=== PATIENT | female | born 1995 | race Caucasian/White ===

== ENCOUNTER 2017-11-02 15:40 | Emergency (ER) | payer MEDICAID ==
[2017-11-02 15:40] VITALS: BMI 19.5
[2017-11-02 15:49] VITALS: BP 109/78; PULSE 84; TEMP 97.8; O2SAT 99
[2017-11-02 16:34] VITALS: RESP 15
--- NOTE | 2017-11-02 16:37 | C.PDOC ---
History Of Present Illness 22 year old female presents to the emergency department with complaints of pain in her chest that is associated with movement, resulting in shortness of breath. Patient reports that things such as sneezing and laughing are difficult due to the fact that she cannot take forceful, full breaths without pain. Patient reports that she has felt this way for a "couple of months", stating that it was worse at the beginning. She denies any trauma, falls, pneumonia, or asthma. Patient has a four year old child at home who she denies carrying/ lifting due to his weight. 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 Time Seen by Provider: 11/02/17 16:01 Chief Complaint (Nursing): Rib Injury History Per: Patient History/Exam Limitations: no limitations Onset/Duration Of Symptoms: Days ("couple of months") Current Symptoms Are (Timing): Still Present Quality: "Pain" Exacerbating Factors: Turning, Movement, Deep Breathing, Exertion, Other ( movement of her arms) Alleviating Factors: Other (Breathing shorter and quickly rather than deeply. ) Past Medical History Reviewed: Historical Data, Nursing Documentation, Vital Signs Vital Signs: Last Vital Signs Temp 97.8 F 11/02/17 15:46 Pulse 84 11/02/17 15:46 Resp 15 11/02/17 16:08 BP 109/78 11/02/17 15:46 Pulse Ox 99 11/02/17 17:01 - Medical History PMH: No Chronic Diseases Denies: Asthma, Pneumonia Surgical History: No Surg Hx Family History: States: No Known Family Hx - Social History Hx Tobacco Use: No Hx Alcohol Use: No Hx Substance Use: No - Immunization History Hx Tetanus Toxoid Vaccination: No Hx Influenza Vaccination: No Hx Pneumococcal Vaccination: No Review Of Systems Except As Marked, All Systems Reviewed And Found Negative. Cardiovascular: Positive for: Chest Pain Respiratory: Positive for: Shortness of Breath Physical Exam - Physical Exam Appears: Well, Non-toxic Skin: Normal Color, No Rash Head: Atraumatic, Normacephalic Eye(s): bilateral: Normal Inspection Ear(s): Bilateral: Normal Nose: Normal Tongue: Normal Appearing Neck: Normal, Supple Chest: Tenderness, Other (costochondritis; digitally reproducible pain at the left parasternal intercostal space. ) Cardiovascular: Rhythm Regular Respiratory: Normal Breath Sounds Neurological/Psych: Oriented x3, Normal Speech, Normal Cognition ED Course And Treatment ECG: Interpreted By Me ECG Rhythm: Sinus Rhythm (60) ECG Interpretation: Normal O2 Sat by Pulse Oximetry: 99 (RA) Pulse Ox Interpretation: Normal Medical Decision Making Medical Decision Making: Plan: * EKG * Motrin 600mg PO positionally and digitally reproducable localized discomfort @ L lower parasternal area for about 2 months, clear lungs, normal EKG 4 y/0 child @ home- occasional awkward lifting, c/w costochondritis and NOT ACS ice and NSAIDS educated. Disposition Doctor Will See Patient In The: Office Counseled Patient/Family Regarding: Studies Performed, Diagnosis - Disposition Referrals: [facility] at [facility] [Outside] [facility] [Outside] Nolberto Hatfield MD [Medical Doctor] - Disposition: HOME/ ROUTINE Disposition Time: 16:37 Condition: GOOD Additional Instructions: ice packs to the affected area 1/2 hour per hour, nothing hot. motrin 400-600 mg every 6 hours as needed no heavy lifting for 1-2 weeks this discomfort will last 1-2 more weeks Follow-up with your PMD or our outpatient [facility] as needed. EKG today is NORMAL- you are NOT having a heart attack. Instructions: Costochondritis Forms: [employer] (Yemeni) - Clinical Impression Clinical Impression: Chest wall discomfort - Scribe Statement The provider has reviewed the documentation as recorded by the Scribe (Karl Lyle) Provider Attestation: All medical record entries made by the Scribe were at my direction and personally dictated by me. I have reviewed the chart and agree that the record accurately reflects my personal performance of the history, physical exam, medical decision making, and the department course for this patient. I have also personally directed, reviewed, and agree with the discharge instructions and disposition.
--- NOTE | 2017-11-03 23:29 | CARD ---
APPROVED REPORT EKG Measurement Heart [id number] <Conclusion> Normal sinus rhythm with sinus arrhythmia Normal ECG
== END 2017-11-02 17:04 | disposition home or self-care (01) ==
LOC: C.ER 15:40
DX: R07.89 Other chest pain (principal)

== ENCOUNTER 2017-11-08 11:48 | Observation (INO) | payer MEDICAID ==
[2017-11-08 11:48] VITALS: BMI 19.5
[2017-11-08] MEDS ORDERED: Sodium Chloride 0.9% 1,000 ML IV ONE ×2 (12:10→15:40)
[2017-11-08 12:15] LABS: BASO # 0.1 K/uL (0.0-0.2); BASO % 0.7 % (0.0-2.0); EOS # 0.1 K/uL (0.0-0.7); EOS % 0.5 % (0.0-4.0); LYMPH # 4.2 K/uL (1.0-4.3); LYMPH % 21.9 % (20.0-40.0); MEAN CELL VOLUME 88.1 fL (81.0-99.0); MEAN CORPUSCULAR HEMOGLOBIN 29.8 pg (27.0-31.0); MEAN CORPUSCULAR HGB CONC 33.8 g/dL (33.0-37.0); MEAN PLATELET VOLUME 8.7 fL (7.2-11.7); MONO % 5.3 % (0.0-10.0); NEUT # 13.7 K/uL (1.8-7.0); NEUT % 71.6 % (50.0-75.0); NRBC % 0.1 % (0.0-2.0); RBC 4.37 Mil/uL (3.80-5.20); RED CELL DISTRIBUTION WIDTH 14.5 % (11.5-14.5); WHITE BLOOD COUNT 19.1 K/uL (4.8-10.8)
[2017-11-08 12:30] LABS: ALB/GLOB RATIO 1.2 (1.0-2.1); ALBUMIN 4.6 g/dL (3.5-5.0); ALT/SGPT 22 U/L (9-52); AST/SGOT 37 U/L (14-36); BLOOD UREA NITROGEN 12 mg/dL (7-17); CALCIUM 9.5 mg/dl (8.6-10.4); GFR AFRICAN-AMERICAN > 60; GFR NON-AFRICAN AMERICAN > 60
--- NOTE | 2017-11-08 12:52 | C.PDOC ---
History Of Present Illness Patient is a 22 y/o female, with a Hx of a cesarian section, who presents to the ED with a complaint of vomiting since 7 am this morning. Patient reports having 2 jose drinks at [place] last night and subsequently vomited at 10pm. Patient awoke this morning and continued vomiting, prompting visit. Notes 3 loose stools today. Admits to feeling nauseous in ED. No other physical complaints at this time. Time Seen by Provider: 11/08/17 12:08 Chief Complaint (Nursing): GI Problem History Per: Patient History/Exam Limitations: no limitations Onset/Duration Of Symptoms: Hrs Current Symptoms Are (Timing): Still Present Context: Other (alcohol) Associated Symptoms: Nausea, Vomiting Last Bowel Movement: Today (3 loose stools) Recent travel outside of the [place]: No Past Medical History Reviewed: Historical Data, Nursing Documentation, Vital Signs Vital Signs: Last Vital Signs Temp 97.5 F L 11/08/17 11:54 Pulse 81 11/08/17 11:54 Resp 20 11/08/17 11:54 BP 109/64 11/08/17 11:54 Pulse Ox 97 11/08/17 13:05 - Medical History PMH: No Chronic Diseases Denies: Asthma, Pneumonia Surgical History: No Surg Hx Family History: States: Unknown Family Hx - Social History Hx Tobacco Use: No Hx Alcohol Use: Yes Hx Substance Use: No - Immunization History Hx Tetanus Toxoid Vaccination: No Hx Influenza Vaccination: No Hx Pneumococcal Vaccination: No Review Of Systems Gastrointestinal: Positive for: Nausea, Vomiting Physical Exam - Physical Exam Appears: Non-toxic, No Acute Distress Skin: Normal Color, Warm, Dry Head: Atraumatic, Normacephalic Oral Mucosa: Moist Chest: Symmetrical Cardiovascular: Rhythm Regular, No Murmur Respiratory: Normal Breath Sounds, No Rales, No Rhonchi, No Wheezing Gastrointestinal/Abdominal: Soft, No Tenderness Neurological/Psych: Oriented x3, Normal Speech, Normal Cognition ED Course And Treatment - Laboratory Results Result Diagrams: 11/08/17 12:11 11/08/17 12:11 O2 Sat by Pulse Oximetry: 97 - CT Scan/US abomen/pelvis Other Rad Studies (CT/US): Interpreted By Me, Read By Radiologist CT/US Interpretation: PROCEDURE: CT scan abdomen pelvis dated 11/08/2017. HISTORY: Abdominal pain and vomiting. COMPARISON: No prior study available comparison. TECHNIQUE: Contiguous axial images of the abdomen and pelvis performed following intravenous injection of approximately 100 cc Visipaque 320 contrast material. . Coronal and Sagittal reformats generated. Radiation dose: Total exam DLP =. This CT exam was performed using one or more of the following dose reduction techniques: Automated exposure control, adjustment of the mA and/or kV according to patient size, and/or use of iterative reconstruction technique. FINDINGS: LOWER THORAX: Lung bases clear. No infiltrate effusion or basilar pneumothorax. . There is small hiatal hernia. Heart size within range of normal. No significant pericardial effusion. LIVER: The liver exhibits normal size measuring approximately 17 cm in CC dimension. Moderate diffuse fatty hepatic infiltration. No obvious hepatic mass or collection. Portal and splenic veins are opacified. GALLBLADDER AND BILE DUCTS : Gallbladder is physiologically distended. No evidence of intraluminal gallbladder calculi. PANCREAS: Unremarkable. No mass. No ductal dilatation. SPLEEN: Unremarkable. No splenomegaly. ADRENALS: Unremarkable. KIDNEYS AND URETERS: Kidneys demonstrate symmetric nephrograms. No evidence of nephrolithiasis or hydronephrosis. BLADDER: Urinary bladder appears incompletely distended which presumably in accounts for thick-walled appearance however rule out cystitis. Correlation with urinalysis recommended. REPRODUCTIVE: The increased on periuterine vascularity along the left side with prominent left ovarian vein nonspecific. Rule out pelvic congestion syndrome. APPENDIX: The appendix is not seen with complete certainty however no obvious inflammatory changes right lower quadrant of the abdomen. BOWEL: Evaluation of the bowel is limited due to the lack of oral contrast material. Stomach is relatively decompressed. . Note made of several loops of small bowel that exhibit on mild wall thickening in the left upper and mid abdomen in addition, there appears to be wall thickening of a good portion of the colon and possibly in part due to collapse however the possibility of a nonspecific enterocolitis must be excluded. Clinical correlation recommended. PERITONEUM: . No evidence of free intraperitoneal air. No free or loculated fluid collections. LYMPH NODES: Unremarkable. No enlarged lymph nodes. VASCULATURE : Unremarkable. No aortic aneurysm. BONES: Minor degenerative spondylosis several lower thoracic disc space levels. OTHER FINDINGS: None. IMPRESSION: Several on thick-walled loops of small bowel in the left upper and mid abdomen with mild wall thickening of the colon of the latter which may in part be due to collapse however enterocolitis must be considered given the patient's history of abdominal pain and vomiting. Appendix is not seen with any certainty on this study. Although no inflammatory changes right lower quadrant of the abdomen identified at this time. Clinical correlation with laboratory values and physical exam recommended as the possibility of a early acute appendicitis cannot be excluded based on this exam. Prominent of left-sided periuterine vascularity with prominent left ovarian vein. Rule out pelvic congestion syndrome. Moderate fatty hepatic infiltration. Urinary bladder exhibits slight thick-walled appearance likely due to underdistention however correlation urinalysis to exclude the possibility of a cystitis Progress Note: Abdomen/pelvis CT and UA ordered. HCG urine, relgan, pepcid, zofran, and IV fluids administered. Disposition - Disposition Forms: [employer] (Thai) - Scribe Statement The provider has reviewed the documentation as recorded by the Scribe Benita Bradley All medical record entries made by the Scribe were at my direction and personally dictated by me. I have reviewed the chart and agree that the record accurately reflects my personal performance of the history, physical exam, medical decision making, and the department course for this patient. I have also personally directed, reviewed, and agree with the discharge instructions and disposition.
[2017-11-08 13:32] LABS: HCG,QUALITATIVE URINE NEGATIVE (NEGATIVE)
[2017-11-08 13:33] LABS: SQUAMOUS EPITHIAL 3 /hpf (0-5); URINE BACTERIA OCC (<OCC); URINE BILIRUBIN NEGATIVE (NEGATIVE); URINE BLOOD NEGATIVE (NEGATIVE); URINE CLARITY Hazy (Clear); URINE COLOR Yellow (YELLOW); URINE GLUCOSE (UA) NORMAL (Normal); URINE LEUKOCYTE ESTERASE TRACE Leu/uL (Negative); URINE PROTEIN 2+ mg/dL (NEGATIVE); URINE UROBILINOGEN NORMAL mg/dL (0.2-1.0)
[2017-11-08] MEDS ORDERED: Iodixanol 320 MG/ML 100 ML BOTTLE IV ONE (14:06)
--- NOTE | 2017-11-08 15:07 | CT ---
PROCEDURE: CT scan abdomen pelvis dated 11/08/2017 HISTORY: Abdominal pain and vomiting. COMPARISON: No prior study available comparison TECHNIQUE: Contiguous axial images of the abdomen and pelvis performed following intravenous injection of approximately 100 cc Visipaque 320 contrast material. . Coronal and Sagittal reformats generated. Radiation dose: Total exam DLP = This CT exam was performed using one or more of the following dose reduction techniques: Automated exposure control, adjustment of the mA and/or kV according to patient size, and/or use of iterative reconstruction technique. FINDINGS: LOWER THORAX: Lung bases clear. No infiltrate effusion or basilar pneumothorax. . There is small hiatal hernia. Heart size within range of normal. No significant pericardial effusion. LIVER: The liver exhibits normal size measuring approximately 17 cm in CC dimension. Moderate diffuse fatty hepatic infiltration. No obvious hepatic mass or collection. Portal and splenic veins are opacified. GALLBLADDER AND BILE DUCTS: Gallbladder is physiologically distended. No evidence of intraluminal gallbladder calculi. PANCREAS: Unremarkable. No mass. No ductal dilatation. SPLEEN: Unremarkable. No splenomegaly. ADRENALS: Unremarkable. KIDNEYS AND URETERS: Kidneys demonstrate symmetric nephrograms. No evidence of nephrolithiasis or hydronephrosis. BLADDER: Urinary bladder appears incompletely distended which presumably in accounts for thick-walled appearance however rule out cystitis. Correlation with urinalysis recommended. REPRODUCTIVE: The increased on periuterine vascularity along the left side with prominent left ovarian vein nonspecific. Rule out pelvic congestion syndrome. APPENDIX: The appendix is not seen with complete certainty however no obvious inflammatory changes right lower quadrant of the abdomen. BOWEL: Evaluation of the bowel is limited due to the lack of oral contrast material. Stomach is relatively decompressed. . Note made of several loops of small bowel that exhibit on mild wall thickening in the left upper and mid abdomen in addition, there appears to be wall thickening of a good portion of the colon and possibly in part due to collapse however the possibility of a nonspecific enterocolitis must be excluded. Clinical correlation recommended. PERITONEUM: . No evidence of free intraperitoneal air. No free or loculated fluid collections. LYMPH NODES: Unremarkable. No enlarged lymph nodes. VASCULATURE: Unremarkable. No aortic aneurysm. BONES: Minor degenerative spondylosis several lower thoracic disc space levels. OTHER FINDINGS: None. IMPRESSION: Several on thick-walled loops of small bowel in the left upper and mid abdomen with mild wall thickening of the colon of the latter which may in part be due to collapse however enterocolitis must be considered given the patient's history of abdominal pain and vomiting. Appendix is not seen with any certainty on this study Although no inflammatory changes right lower quadrant of the abdomen identified at this time. Clinical correlation with laboratory values and physical exam recommended as the possibility of a early acute appendicitis cannot be excluded based on this exam. Prominent of left-sided periuterine vascularity with prominent left ovarian vein. Rule out pelvic congestion syndrome. Moderate fatty hepatic infiltration. Urinary bladder exhibits slight thick-walled appearance likely due to underdistention however correlation urinalysis to exclude the possibility of a cystitis.
[2017-11-08] MEDS ORDERED: Sodium Chloride 0.9% 1,000 ML ONE (15:44)
[2017-11-08] MEDS ORDERED: DiphenhydrAMINE 50 mg/ml Inj IVP STA (16:16)
[2017-11-08] MEDS ORDERED: DiphenhydrAMINE 50 mg/ml Inj ONE (16:31)
[2017-11-08] MEDS: Dextrose 5%/0.9% NS 1,000 ML IV SCH (18:00)
[2017-11-08 18:05] VITALS: RESP 20
--- NOTE | 2017-11-08 21:16 | CP.PCM.HP ---
Past Patient History - Infectious Disease Hx of Infectious Diseases: None - Past Social History Smoking Status: Former Smoker - PULMONARY Hx Asthma: No Hx Pneumonia: No - PSYCHIATRIC Hx Substance Use: No - SURGICAL HISTORY Hx Surgeries: Yes Hx Section: Yes - ANESTHESIA Hx Anesthesia: Yes Hx Anesthesia Reactions: No Meds Allergies/Adverse Reactions: Allergies Allergy/AdvReac Type Severity Reaction Status Date / Time No Known Allergies Allergy Verified 11/08/17 11:57 Results - Vital Signs Recent Vital Signs: Last Vital Signs Temp 98.3 F 11/08/17 17:30 Pulse 61 11/08/17 17:30 Resp 20 11/08/17 17:30 BP 103/61 11/08/17 17:30 Pulse Ox 99 11/08/17 17:30 - Labs Result Diagrams: 11/08/17 12:11 11/08/17 12:11 Labs: Laboratory Results - last 24 hr 11/08/17 11/08/17 11/08/17 12:11 12:11 12:16 WBC 19.1 H RBC 4.37 Hgb 13.0 Hct 38.5 MCV 88.1 MCH 29.8 MCHC 33.8 RDW 14.5 Plt Count 324 MPV 8.7 Neut % (Auto) 71.6 Lymph % (Auto) 21.9 [place] % (Auto) 5.3 Eos % (Auto) 0.5 Baso % (Auto) 0.7 Neut # (Auto) 13.7 H Lymph # (Auto) 4.2 [place] # (Auto) 1.0 H Eos # (Auto) 0.1 Baso # (Auto) 0.1 Sodium 147 Potassium 3.3 L Chloride 110 H Carbon Dioxide 15 L Anion Gap 25 H BUN 12 Creatinine 0.8 Est GFR ( Amer) > 60 Est GFR (Non-Af Amer) > 60 Random Glucose 151 H Lactic Acid Calcium 9.5 Total Bilirubin 0.4 AST 37 H ALT 22 Alkaline Phosphatase 114 Total Protein 8.5 H Albumin 4.6 Globulin 3.9 Albumin/Globulin Ratio 1.2 Lipase 105 Urine Color Urine Clarity Urine pH Ur Specific [place] Urine Protein Urine Glucose (UA) Urine Ketones Urine Blood Urine Nitrate Urine Bilirubin Urine Urobilinogen Ur Leukocyte Esterase Urine WBC (Auto) Urine RBC (Auto) Ur Squamous Epith Cells Urine Bacteria Urine HCG, Qual 11/08/17 11/08/17 13:21 16:10 WBC RBC Hgb Hct MCV MCH MCHC RDW Plt Count MPV Neut % (Auto) Lymph % (Auto) [place] % (Auto) Eos % (Auto) Baso % (Auto) Neut # (Auto) Lymph # (Auto) [place] # (Auto) Eos # (Auto) Baso # (Auto) Sodium Potassium Chloride Carbon Dioxide Anion Gap BUN Creatinine Est GFR ( Amer) Est GFR (Non-Af Amer) Random Glucose Lactic Acid 4.1 H* Calcium Total Bilirubin AST ALT Alkaline Phosphatase Total Protein Albumin Globulin Albumin/Globulin Ratio Lipase Urine Color Yellow Urine Clarity Hazy Urine pH 5.0 Ur Specific [place] 1.026 Urine Protein 2+ H Urine Glucose (UA) Normal Urine Ketones Trace Urine Blood Negative Urine Nitrate Negative Urine Bilirubin Negative Urine Urobilinogen Normal Ur Leukocyte Esterase Trace Urine WBC (Auto) 9 H Urine RBC (Auto) 2 Ur Squamous Epith Cells 3 Urine Bacteria Occ H Urine HCG, Qual Negative
[2017-11-09] MEDS: Dextrose 5%/0.9% NS 1,000 ML IV SCH (03:52)
[2017-11-09 08:22] VITALS: BP 97/55; PULSE 78; TEMP 98.1; O2SAT 99
[2017-11-09 08:24] LABS: BASO # 0.1 K/uL (0.0-0.2); BASO % 0.5 % (0.0-2.0); EOS # 0.1 K/uL (0.0-0.7); EOS % 0.7 % (0.0-4.0); HEMOGLOBIN 12.1 g/dL (11.0-16.0); LYMPH # 3.3 K/uL (1.0-4.3); LYMPH % 28.7 % (20.0-40.0); MEAN CELL VOLUME 88.8 fL (81.0-99.0); MEAN CORPUSCULAR HEMOGLOBIN 29.7 pg (27.0-31.0); MEAN CORPUSCULAR HGB CONC 33.4 g/dL (33.0-37.0); MEAN PLATELET VOLUME 9.3 fL (7.2-11.7); MONO # 1.2 K/uL (0.0-0.8); MONO % 10.6 % (0.0-10.0); NEUT # 6.9 K/uL (1.8-7.0); NEUT % 59.5 % (50.0-75.0); RBC 4.06 Mil/uL (3.80-5.20); RED CELL DISTRIBUTION WIDTH 14.8 % (11.5-14.5); WHITE BLOOD COUNT 11.6 K/uL (4.8-10.8)
[2017-11-09 08:45] LABS: BLOOD UREA NITROGEN 11 mg/dL (7-17); CALCIUM 8.5 mg/dl (8.6-10.4); GFR AFRICAN-AMERICAN > 60; GFR NON-AFRICAN AMERICAN > 60
--- NOTE | 2017-11-09 08:46 | CP.PCM.DIS ---
Provider - Provider Date of Admission: 11/08/17 16:15 Attending physician: Marlene Lu MD Time Spent in preparation of Discharge (in minutes): 30 Hospital Course - Lab Results Lab Results: Most Recent Lab Values WBC 11.6 K/uL (4.8-10.8) H 11/09/17 07:59 RBC 4.06 Mil/uL (3.80-5.20) 11/09/17 07:59 Hgb 12.1 g/dL (11.0-16.0) 11/09/17 07:59 Hct 36.1 % (34.0-47.0) 11/09/17 07:59 MCV 88.8 fL (81.0-99.0) 11/09/17 07:59 MCH 29.7 pg (27.0-31.0) 11/09/17 07:59 MCHC 33.4 g/dL (33.0-37.0) 11/09/17 07:59 RDW 14.8 % (11.5-14.5) H 11/09/17 07:59 Plt Count 226 K/uL (130-400) 11/09/17 07:59 MPV 9.3 fL (7.2-11.7) 11/09/17 07:59 Neut % (Auto) 59.5 % (50.0-75.0) 11/09/17 07:59 Lymph % (Auto) 28.7 % (20.0-40.0) 11/09/17 07:59 [place] % (Auto) 10.6 % (0.0-10.0) H 11/09/17 07:59 Eos % (Auto) 0.7 % (0.0-4.0) 11/09/17 07:59 Baso % (Auto) 0.5 % (0.0-2.0) 11/09/17 07:59 Neut # (Auto) 6.9 K/uL (1.8-7.0) 11/09/17 07:59 Lymph # (Auto) 3.3 K/uL (1.0-4.3) 11/09/17 07:59 [place] # (Auto) 1.2 K/uL (0.0-0.8) H 11/09/17 07:59 Eos # (Auto) 0.1 K/uL (0.0-0.7) 11/09/17 07:59 Baso # (Auto) 0.1 K/uL (0.0-0.2) 11/09/17 07:59 Sodium 143 mmol/L (132-148) 11/09/17 07:59 Potassium 3.4 mmol/L (3.6-5.2) L 11/09/17 07:59 Chloride 110 mmol/L (98-107) H 11/09/17 07:59 Carbon Dioxide 22 mmol/L (22-30) 11/09/17 07:59 Anion Gap 14 (10-20) 11/09/17 07:59 BUN 11 mg/dL (7-17) 11/09/17 07:59 Creatinine 0.7 mg/dL (0.7-1.2) 11/09/17 07:59 Est GFR ( Amer) > 60 11/09/17 07:59 Est GFR (Non-Af Amer) > 60 11/09/17 07:59 Random Glucose 83 mg/dL (65-105) 11/09/17 07:59 Lactic Acid 0.9 mmol/L (0.7-2.1) 11/09/17 06:38 Calcium 8.5 mg/dl (8.6-10.4) L 11/09/17 07:59 Total Bilirubin 0.4 mg/dL (0.2-1.3) 11/08/17 12:11 AST 37 U/L (14-36) H 11/08/17 12:11 ALT 22 U/L (9-52) 11/08/17 12:11 Alkaline Phosphatase 114 U/L (38-126) 11/08/17 12:11 Total Protein 8.5 g/dL (6.3-8.3) H 11/08/17 12:11 Albumin 4.6 g/dL (3.5-5.0) 11/08/17 12:11 Globulin 3.9 gm/dL (2.2-3.9) 11/08/17 12:11 Albumin/Globulin Ratio 1.2 (1.0-2.1) 11/08/17 12:11 Lipase 105 U/L (23-300) 11/08/17 12:16 Urine Color Yellow (YELLOW) 11/08/17 13:21 Urine Clarity Hazy (Clear) 11/08/17 13:21 Urine pH 5.0 (5.0-8.0) 11/08/17 13:21 Ur Specific [place] 1.026 (1.003-1.030) 11/08/17 13:21 Urine Protein 2+ mg/dL (NEGATIVE) H 11/08/17 13:21 Urine Glucose (UA) Normal mg/dL (Normal) 11/08/17 13:21 Urine Ketones Trace mg/dL (NEGATIVE) 11/08/17 13:21 Urine Blood Negative (NEGATIVE) 11/08/17 13:21 Urine Nitrate Negative (NEGATIVE) 11/08/17 13:21 Urine Bilirubin Negative (NEGATIVE) 11/08/17 13:21 Urine Urobilinogen Normal mg/dL (0.2-1.0) 11/08/17 13:21 Ur Leukocyte Esterase Trace [place]aila/uL (Negative) 11/08/17 13:21 Urine WBC (Auto) 9 /hpf (0-5) H 11/08/17 13:21 Urine RBC (Auto) 2 /hpf (0-3) 11/08/17 13:21 Ur Squamous Epith Cells 3 /hpf (0-5) 11/08/17 13:21 Urine Bacteria Occ (<OCC) H 11/08/17 13:21 Urine HCG, Qual Negative (NEGATIVE) 11/08/17 13:21 Discharge Plan - Follow Up Plan Condition: GOOD Disposition: HOME/ ROUTINE
== END 2017-11-09 10:05 | disposition home or self-care (01) ==
LOC: C.ER 11:48 → C.9E 16:15 → C.3T 16:51
PROVIDERS: ADMIT Internal Medicine; ATTEND Internal Medicine
DX: R10.9 Unspecified abdominal pain (principal); Z87.891 Personal history of nicotine dependence; R11.10 Vomiting, unspecified
CPT/HCPCS: 36415; 74177; 80048; 80053; 81001; 83605; 83690; 84703; 85025; 96361; 96374; 96375; 99285; G0378; J1200; J1885; J2405; J2765; J3480; J7040; J7042; Q9967

== ENCOUNTER 2018-01-20 20:30 | Emergency (ER) | payer MEDICAID ==
[2018-01-20 20:31] VITALS: BMI 19.5
[2018-01-20] MEDS ORDERED: Lactated Ringer's 1,000 ML IVB STA (21:02)
[2018-01-20] MEDS ORDERED: Lactated Ringer's 1,000 ML ONE (21:08)
[2018-01-20 21:25] LABS: HCG,QUALITATIVE URINE NEGATIVE (NEGATIVE)
[2018-01-20 21:29] LABS: BASO % 0.2 % (0.0-2.0); EOS # 0.1 K/uL (0.0-0.7); EOS % 0.3 % (0.0-4.0); HEMOGLOBIN 13.9 g/dL (11.0-16.0); LYMPH # 1.8 K/uL (1.0-4.3); MEAN CORPUSCULAR HEMOGLOBIN 29.2 pg (27.0-31.0); MEAN CORPUSCULAR HGB CONC 32.8 g/dL (33.0-37.0); MEAN PLATELET VOLUME 8.5 fL (7.2-11.7); MONO # 1.6 K/uL (0.0-0.8); MONO % 8.1 % (0.0-10.0); NEUT # 16.7 K/uL (1.8-7.0); NEUT % 82.4 % (50.0-75.0); PLATELET COUNT 308 K/uL (130-400); RBC 4.77 Mil/uL (3.80-5.20); RED CELL DISTRIBUTION WIDTH 14.6 % (11.5-14.5); WHITE BLOOD COUNT 20.2 K/uL (4.8-10.8)
[2018-01-20 21:30] LABS: SQUAMOUS EPITHIAL 4 /hpf (0-5); URINE BILIRUBIN NEGATIVE (NEGATIVE); URINE BLOOD 3+ (NEGATIVE); URINE CLARITY Hazy (Clear); URINE COLOR Amber (YELLOW); URINE GLUCOSE (UA) NORMAL (Normal); URINE LEUKOCYTE ESTERASE TRACE Leu/uL (Negative); URINE PROTEIN 1+ mg/dL (NEGATIVE); URINE UROBILINOGEN NORMAL mg/dL (0.2-1.0)
[2018-01-20 21:32] LABS: ALB/GLOB RATIO 1.4 (1.0-2.1); ALBUMIN 4.9 g/dL (3.5-5.0); ALT/SGPT 29 U/L (9-52); AST/SGOT 35 U/L (14-36); BLOOD UREA NITROGEN 13 mg/dL (7-17); CALCIUM 9.8 mg/dl (8.6-10.4); GFR AFRICAN-AMERICAN > 60; GFR NON-AFRICAN AMERICAN > 60; LIPASE 91 U/L (23-300)
[2018-01-20 21:52] LABS: BARBITURATES, UR NEGATIVE (NEGATIVE); BENZODIAZEPINES, UR NEGATIVE (NEGATIVE); OPIATES, UR NEGATIVE (NEGATIVE); PHENCYCLIDINE, UR NEGATIVE (NEGATIVE)
[2018-01-20 22:21] LABS: BANDS 4 % (0-2); LYMPHOCYTE 7 % (20-40); MONOCYTE 10 % (0-10); NEUTROPHIL 79 % (50-75); TOTAL CELLS COUNTED 100
[2018-01-20 22:22] LABS: LARGE PLATELETS PRESENT; MICROCYTOSIS SLIGHT; PLATELET ESTIMATE NORMAL (NORMAL); TEARDROP CELLS SLIGHT
[2018-01-20] MEDS ORDERED: DiphenhydrAMINE 50 mg/ml Inj IVP STA (22:30)
[2018-01-20] MEDS ORDERED: DiphenhydrAMINE 50 mg/ml Inj ONE (22:53)
[2018-01-20] MEDS ORDERED: Sodium Chloride 0.9% 1,000 ML IV ONE (23:50)
[2018-01-20] MEDS ORDERED: Capsaicin 0.025% Cream (60 gm) TOP STA (23:50)
[2018-01-21] MEDS ORDERED: Sodium Chloride 0.9% 1,000 ML ONE (00:07)
--- NOTE | 2018-01-21 00:28 | C.PDOC ---
Time Seen by Provider: 01/20/18 20:39 Chief Complaint (Nursing): GI Problem History Per: Patient Onset/Duration Of Symptoms: Hrs (today) Current Symptoms Are (Timing): Still Present Context: Other (Frequent Marijuana user) Severity: Moderate Quality Of Discomfort: Unable To Describe Associated Symptoms: Nausea, Vomiting Exacerbating Factors: Food Alleviating Factors: None Last Bowel Movement: Today Additional History Per: Prior Records Past Medical History Reviewed: Historical Data, Nursing Documentation, Vital Signs Vital Signs: Last Vital Signs Temp 98.6 F 01/21/18 00:28 Pulse 59 L 01/21/18 00:28 Resp 18 01/21/18 00:28 BP 95/57 L 01/21/18 00:28 Pulse Ox 100 01/21/18 00:28 - Medical History PMH: No Chronic Diseases Surgical History: No Surg Hx Family History: States: Unknown Family Hx - Social History Hx Tobacco Use: No Hx Alcohol Use: No Hx Substance Use: Yes (Marijuana) - Immunization History Hx Tetanus Toxoid Vaccination: No Hx Influenza Vaccination: No Hx Pneumococcal Vaccination: No Review Of Systems Except As Marked, All Systems Reviewed And Found Negative. Constitutional: Negative for: Fever Cardiovascular: Negative for: Chest Pain Respiratory: Negative for: Shortness of Breath Gastrointestinal: Positive for: Nausea, Vomiting. Negative for: Abdominal Pain , Constipation, Melena, Hematochezia, Hematemesis Genitourinary: Negative for: Dysuria Musculoskeletal: Negative for: Neck Pain Skin: Negative for: Rash Neurological: Negative for: Weakness, Numbness, Headache Physical Exam - Physical Exam Appears: Non-toxic, Other (Vomiting) Skin: Normal Color, Warm, Dry, No Rash Head: Atraumatic, Normacephalic Eye(s): bilateral: PERRL, EOMI Neck: Normal ROM, Supple Cardiovascular: Rhythm Regular Respiratory: Normal Breath Sounds, No Accessory Muscle Use Gastrointestinal/Abdominal: Soft, No Tenderness, No Distention Back: No CVA Tenderness Extremity: Normal ROM Neurological/Psych: Oriented x3, Normal Motor, Normal Sensation ED Course And Treatment - Laboratory Results Result Diagrams: 01/20/18 21:12 01/20/18 21:12 Urine POC: Negative O2 Sat by Pulse Oximetry: 99 Pulse Ox Interpretation: Normal Progress Note: After Haldol IM and Capsaicin applied topically on abdomen, pt feels much better. No abdominal pain or tenderness. Nausea resolved. Reassessment Condition: Improved Progress - Interventions Interventions:: Observation, Intravenous fluid - Medications Administered Intravenous: Antiemetic, H-2 demetria - Data Reviewed Data Reviewed: Lab, Old records - Patient Status Patient status: Mostly improved - Continuity of Care Discussed patient case with:: Patient, ED Nurse - Patient Plan Patient Plan: Discharge, F/U with PCP Disposition Counseled Patient/Family Regarding: Studies Performed, Diagnosis, Need For Followup, Rx Given - Disposition Referrals: Nolberto Hatfield MD [Medical Doctor] - Disposition: HOME/ ROUTINE Disposition Time: 00:41 Condition: IMPROVED Additional Instructions: Stop using Marijuana. Drink plenty of fluids. Follow up with your doctor. Return to the ER if you develop fever, abdominal pain, not tolerating fluids, worsening of symptoms or if you have any other concerns. Prescriptions: Famotidine [Pepcid] 20 mg PO BID #30 tab Metoclopramide [Reglan] 1 tab PO TID PRN #15 tab PRN Reason: Nausea/Vomiting Instructions: Nausea and Vomiting, Adult (DC), Marijuana Use and Addiction Forms: [employer] (Senegalese) - Clinical Impression Clinical Impression: Cannabinoid hyperemesis syndrome
[2018-01-21 00:29] VITALS: RESP 18
[2018-01-21 02:29] VITALS: BP 112/74; PULSE 88; TEMP 98.3; O2SAT 98
== END 2018-01-21 02:34 | disposition home or self-care (01) ==
LOC: C.ER 20:30
DX: R11.2 Nausea with vomiting, unspecified (principal); T40.7X5A Adverse effect of cannabis (derivatives), initial encounter
CPT/HCPCS: 80053; 80324; 80345; 80346; 80349; 80353; 80358; 80361; 81001; 83690; 83992; 84703; 85025; 96372; 96374; 96375; 96376; 99285; J1200; J1630; J2405; J7030; J7120